=== PATIENT | female | born 1970 | race Caucasian/White ===

== ENCOUNTER → 2019-12-09 | Outpatient (CLI) | payer BC ==
--- NOTE | 2019-12-09 16:25 | Diagnostic Imaging Report ---
EXAMINATION: Left hip at 02:27 p.m. INDICATION: Hip pain. FINDINGS: A single AP view of the pelvis and AP and lateral views of the left hip were obtained. There are no prior studies available for comparison. There is no fracture, dislocation, or acute bony abnormality evident. There is moderate degenerative disease of the left hip joint and mild degenerative disease of the right hip joint. Mild symmetrical sclerosis of the sacroiliac joints is also seen. The soft tissues are unremarkable. IMPRESSION: 1. There is no evidence for an acute bony abnormality. 2. There is moderate degenerative disease involving the left hip joint. Dictated by: Dictated on workstation # [id number]
== END ==
LOC: RAD FS 14:05
PROVIDERS: ATTEND Nurse Practitioner
DX: M16.12 Unilateral primary osteoarthritis, left hip (principal)
CPT/HCPCS: 73502

== ENCOUNTER → 2020-01-28 | Outpatient (CLI) | payer BC ==
[~2020-01-28] VITALS: Ht 185.5 cm; Wt 113.6 kg
[~2020-01-28] MED LIST: GADOBUTROL 7.5 MMOL/7.5 ML (GADAVIST) VIAL IV ONE; IOHEXOL 240 MGI/ML 50 ML (OMNIPAQUE) VIAL IV ONE
--- NOTE | 2020-01-28 16:33 | Diagnostic Imaging Report ---
PROCEDURE: MRI left joint lower extremity with contrast. TECHNIQUE: Multiplanar, multisequence intra-articular contrast-enhanced MRI of the left hip was accomplished. INDICATION: Left hip pain for eight months. Occasional catching. No known injury. COMPARISON: Radiographs from 12/09/2019. FINDINGS: No acute fracture is seen in the pelvis or left hip. Alignment appears normal. The femoral heads are well seated in the acetabula bilaterally. There is distention of the left hip joint with contrast. There are elsxhmzy-lr-qoydsy degenerative changes in the superior left hip with large cyst-like changes in the superior acetabulum. There is extensive degenerative complex tearing of the acetabular labrum, most notable in the superior and anterior labrum. No evidence of osteonecrosis is seen. The alpha angle of the left hip measures 45 degrees. There is motion artifact on multiple sequences. The left iliopsoas tendon appears intact. The left gluteus medius and minimus tendons appear intact. No focal muscular atrophy is appreciated. IMPRESSION: 1. Fbmhojru-sg-zhpakw degenerative changes in the left hip with complex degenerative tearing of the glenoid labrum. Prominent cyst in the superior acetabulum may be due to degeneration or possibly an intraosseous ganglion cyst. 2. No acute osseous abnormality is seen in the left hip. Dictated by: Dictated on workstation # [id number]
== END ==
LOC: RAD 13:32
PROVIDERS: ATTEND Nurse Practitioner
DX: M25.852 Other specified joint disorders, left hip (principal); M24.152 Other articular cartilage disorders, left hip; M16.12 Unilateral primary osteoarthritis, left hip
CPT/HCPCS: 27093; 73525; 73722

== ENCOUNTER 2020-08-09 13:06 | Day surgery (SDC) | payer BC ==
[2020-08-09] VITALS (9 sets, daily range): BP systolic 124–158; BP diastolic 73–88
[~2020-08-09] VITALS: Ht 185 cm; Wt 121.1 kg
[2020-08-09] MEDS ORDERED: morphine INJ 10 MG/ML 1ML (SYR OR VIAL) IVP STA ×3 (13:29→15:08)
[2020-08-09] MEDS ORDERED: ONDANSETRON 4 MG/2 ML (SDV) Z0FRAN IVP ONE (13:30)
[2020-08-09] MEDS: NS IV 1000 ML 1,000 ML IV SCH ×2 (13:36→14:44)
[2020-08-09 13:38] LABS: BASOPHILS # (AUTO) 0.1 10^3/uL (0.0-0.1); BASOPHILS % (AUTO) 1 % (0-10); EOSINOPHILS # (AUTO) 0.1 10^3/uL (0.0-0.3); EOSINOPHILS % (AUTO) 2 % (0-10); HEMATOCRIT 44 % (35-52); HEMOGLOBIN 14.6 G/DL (11.5-16.0); LYMPHOCYTES # (AUTO) 1.4 X 10^3 (1.0-4.0); LYMPHOCYTES % (AUTO) 14 % (12-44); MEAN CORPUSCULAR HEMOGLOBIN 29 PG (25-34); MEAN CORPUSCULAR HGB CONC 33 G/DL (32-36); MEAN CORPUSCULAR VOLUME 88 FL (80-99); MEAN PLATELET VOLUME 10.4 FL (7.4-10.4); MONOCYTES # (AUTO) 0.6 X 10^3 (0.0-1.0); MONOCYTES % (AUTO) 7 % (0-12); NEUTROPHILS # (AUTO) 7.2 X 10^3 (1.8-7.8); NEUTROPHILS % (AUTO) 77 % (42-75); PLATELET COUNT 266 10^3/uL (130-400); WHITE BLOOD COUNT 9.4 10^3/uL (4.3-11.0)
--- NOTE | 2020-08-09 13:40 | Diagnostic Imaging Report ---
INDICATION: Chest pain. COMPARISON: None FINDINGS: Single frontal view of the chest demonstrates normal heart size and pulmonary vascularity. The lungs are well aerated and clear. No large pleural effusion or pneumothorax is seen. The visualized osseous structures show no acute abnormalities. IMPRESSION: 1. No acute cardiopulmonary process. Dictated by: Dictated on workstation # [id number]
[2020-08-09 13:56] LABS: ALANINE AMINOTRANSFERASE 229 U/L (0-55); ALBUMIN 4.8 GM/DL (3.2-4.5); ALKALINE PHOSPHATASE 140 U/L (40-136); BILIRUBIN,TOTAL 0.4 MG/DL (0.1-1.0); BUN/CREATININE RATIO 17; CALCIUM 9.8 MG/DL (8.5-10.1); CARBON DIOXIDE 25 MMOL/L (21-32); CHLORIDE 104 MMOL/L (98-107); CREATININE SERUM 0.83 MG/DL (0.60-1.30); GFR ESTIMATED > 60; GLUCOSE 129 MG/DL (70-105); LIPASE 185 U/L (8-78); POTASSIUM 3.9 MMOL/L (3.6-5.0); SODIUM 142 MMOL/L (135-145); TOTAL PROTEIN 7.9 GM/DL (6.4-8.2)
[2020-08-09] MEDS ORDERED: LORazepam INJ 2 MG/ML (ATIVAN) VIAL IVP ONE (14:00)
[2020-08-09] MEDS ORDERED: CEFEPIME INJECTION 1,000 MG in WATER (STERILE) FOR INJECTION 10 ML IV ONE (14:30)
--- NOTE | 2020-08-09 14:43 | ED General ---
General Chief Complaint: Abdominal/GI Problems Stated Complaint: RT ABD PAIN Nursing Triage Note: Started having abdominal pain yesterday at 4 pm. Went to urgent care this morning and had an ultrasound that showed gallstone at neck of gallbladder. Was also prescribed hydro's and an appointment with Dr Fagan, surgeon, at 1445. Comes to ED at this time due to pain and not being able to keep down pain meds due to nausea and vomiting. Nursing Sepsis Screen: No Definite Risk Source of Information: Patient History of Present Illness Date Seen by Provider: Aug 09, 2020 Time Seen by Provider: 13:10 Initial Comments Patient is a 50-year-old female who presents with epigastric/right upper quadr ant pain radiating to her back. Symptom onset began approximately 18 hours prior to ED arrival. Pain is moderate to severe persistent and worse with palpation and movement. Is not relieved by position change or rest. Patient was evaluated at urgent care this morning had not ultrasound which did show an impacted gallstone at the neck of the gallbladder. Patient was given pain m edication instructed to follow-up with Dr. Fagan this afternoon. However, patient was unable to keep pain and nausea medication down necessitating today's ER visit. Patient denies fever chills, sweats. Hematemesis coffee-ground emesis or bilious emesis. No diarrhea. No urinary frequency urgency. Previous cholecystectomy. Timing/Duration: 12-24 Hours Severity: Severe Modifying Factors: improves with Other Associated Systoms: Other Allergies and Home Medications Allergies Coded Allergies: Penicillins (Verified Allergy, Unknown, unknown , 08/09/20) Patient Home Medication List Home Medication List Reviewed: Yes Review of Systems Review of Systems Constitutional: see HPI EENTM: see HPI Respiratory: no symptoms reported Cardiovascular: see HPI Gastrointestinal: see HPI Genitourinary: see HPI : Yes Musculoskeletal: back pain Skin: no symptoms reported Psychiatric/Neurological: No Symptoms Reported Immunological/Allergic: no symptoms reported All Other Systems Reviewed Negative Unless Noted: Yes Past Lqidxcv-Wiwrjy-Ufgtvf Hx Past Med/Social Hx: Reviewed Nursing Past Med/Soc Hx Patient Social History Alcohol Use: Denies Use Smoking Status: Never a Smoker 2nd Hand Smoke Exposure: No Recent Infectious Disease Expo: No Recent Hopitalizations: No Seasonal Allergies Seasonal Allergies: No Past Medical History Surgeries: Yes Hysterectomy Respiratory: No Cardiac: Yes Hypertension Neurological: No Genitourinary: No Gastrointestinal: No Musculoskeletal: No Endocrine: No HEENT: No Cancer: No Psychosocial: No Integumentary: No Blood Disorders: No Adverse Reaction/Blood Tranf: No Physical Exam Vital Signs Vital Signs - First Documented 08/09/20 13:22 Temp 35.1 Pulse 57 Resp 16 B/P (MAP) 195/88 (123) Pulse Ox 100 Capillary Refill : Less Than 3 Seconds Height, Weight, BMI Height: '" Weight: lbs. oz. kg; 35.00 BMI Method: General Appearance: Moderate Distress (Secondary to pain) Eyes: Bilateral Eye Normal Inspection, Bilateral Eye PERRL, Bilateral Eye EOMI HEENT: PERRL/EOMI, Normal ENT Inspection, Pharynx Normal Neck: Non Tender Respiratory: Lungs Clear Cardiovascular: Regular Rate, Rhythm Gastrointestinal: Soft, Guarding, Tenderness, Other Back: Normal Inspection, No CVA Tenderness Extremity: Normal Capillary Refill, Non Tender Neurologic/Psychiatric: Alert Focused Exam Sepsis Stage: Ruled Out Lactate Level 08/09/20 13:35: Lactic Acid Level 1.38 Lactic Acid Level Laboratory Tests Test 08/09/20 13:35 Lactic Acid Level 1.38 MMOL/L (0.50-2.00) Progress/Results/Core Measures Suspected Sepsis Recent Fever Within 48 Hours: No Infection Criteria Present: None New/Unexplained Altered Menta: No Sepsis Screen: No Definite Risk SIRS Temperature: Pulse: 57 Respiratory Rate: 16 Laboratory Tests 08/09/20 13:25: White Blood Count 9.4 Blood Pressure 195 /88 Mean: 123 08/09/20 13:35: Lactic Acid Level 1.38 Laboratory Tests 08/09/20 13:25: Creatinine 0.83, Platelet Count 266, Total Bilirubin 0.4 Results/Orders Lab Results Laboratory Tests Test 08/09/20 13:25 08/09/20 13:35 Range/Units White Blood Count 9.4 4.3-11.0 10^3/uL Red Blood Count 4.97 4.35-5.85 10^6/uL Hemoglobin 14.6 11.5-16.0 G/DL Hematocrit 44 35-52 % Mean Corpuscular Volume 88 80-99 FL Mean Corpuscular Hemoglobin 29 25-34 PG Mean Corpuscular Hemoglobin Concent 33 32-36 G/DL Red Cell Distribution Width 13.6 10.0-14.5 % Platelet Count 266 130-400 10^3/uL Mean Platelet Volume 10.4 7.4-10.4 FL Immature Granulocyte % (Auto) 0 % Neutrophils (%) (Auto) 77 H 42-75 % Lymphocytes (%) (Auto) 14 12-44 % Monocytes (%) (Auto) 7 0-12 % Eosinophils (%) (Auto) 2 0-10 % Basophils (%) (Auto) 1 0-10 % Neutrophils # (Auto) 7.2 1.8-7.8 X 10^3 Lymphocytes # (Auto) 1.4 1.0-4.0 X 10^3 Monocytes # (Auto) 0.6 0.0-1.0 X 10^3 Eosinophils # (Auto) 0.1 0.0-0.3 10^3/uL Basophils # (Auto) 0.1 0.0-0.1 10^3/uL Immature Granulocyte # (Auto) 0.0 0.0-0.1 10^3/uL Sodium Level 142 135-145 MMOL/L Potassium Level 3.9 3.6-5.0 MMOL/L Chloride Level 104 98-107 MMOL/L Carbon Dioxide Level 25 21-32 MMOL/L Anion Gap 13 5-14 MMOL/L Blood Urea Nitrogen 14 7-18 MG/DL Creatinine 0.83 0.60-1.30 MG/DL Estimat Glomerular Filtration Rate > 60 BUN/Creatinine Ratio 17 Glucose Level 129 H 70-105 MG/DL Calcium Level 9.8 8.5-10.1 MG/DL Corrected Calcium 8.5-10.1 MG/DL Total Bilirubin 0.4 0.1-1.0 MG/DL Aspartate Amino Transf (AST/SGOT) 50 H 5-34 U/L Alanine Aminotransferase (ALT/SGPT) 229 H 0-55 U/L Alkaline Phosphatase 140 H 40-136 U/L Total Protein 7.9 6.4-8.2 GM/DL Albumin 4.8 H 3.2-4.5 GM/DL Lipase 185 H 8-78 U/L Smear Scan Lactic Acid Level 1.38 0.50-2.00 MMOL/L My Orders Orders - TODD TAN DO Cbc With Automated Diff (08/09/20 13:29) Comprehensive Metabolic Panel (08/09/20 13:29) Lipase (08/09/20 13:29) Ekg Tracing (08/09/20 13:29) Chest 1 View Ap/Pa Only (08/09/20 13:29) Morphine Injection (Morphine Injection (08/09/20 13:29) Ondansetron Injection (Zofran Injectio (08/09/20 13:30) Ns Iv 1000 Ml (Sodium Chloride 0.9%) (08/09/20 13:30) Lactic Acid Analyzer (08/09/20 13:30) Morphine Injection (Morphine Injection (08/09/20 13:46) Lorazepam Injection (Ativan Injection) (08/09/20 14:00) Cefepime Injection (Maxipime Injection) (08/09/20 14:30) Medications Given in ED Current Medications Medications Dose Ordered Sig/An Route Start Time Stop Time Status Last Admin Dose Admin Lorazepam 1 mg ONCE ONCE IVP 08/09/20 14:00 08/09/20 14:01 DC 08/09/20 13:56 1 MG Ondansetron HCl 4 mg ONCE ONCE IVP 08/09/20 13:30 08/09/20 13:31 DC 08/09/20 13:36 4 MG Vital Signs/I&O 08/09/20 13:22 Temp 35.1 Pulse 57 Resp 16 B/P (MAP) 195/88 (123) Pulse Ox 100 Capillary Refill : Less Than 3 Seconds Blood Pressure Mean: 123 Departure Communication (Admissions) Right upper quadrant pain/tenderness with documented impacted gallstone in gallbladder neck and ultrasound prior to ED arrival. Evidence of cholecystitis with pancreatitis. Bilirubin is normal. Case reviewed with Dr. Fagan who agrees to directly admit to [facility]. Impression Primary Impression: Acute cholecystitis Additional Impression: Pancreatitis Disposition: 09 ADMITTED INPATIENT Condition: Stable Admissions Decision to Admit Reason: Admit from ER (General) Transfer Method of Transfer: EMS Departure-Patient Inst. Referrals: DENI ESCOBAR MD (PCP/Family) Primary Care Physician TODD TAN DO Aug 09, 2020 14:43
[2020-08-09] MEDS ORDERED: ROCURONIUM 10 MG/ML 5 ML SYRINGE IV ONE (15:50)
[2020-08-09] MEDS ORDERED: SEVOFLURANE (ULTANE) 15 ML INHAL SOLN ONE ×5 (15:50→18:06)
[2020-08-09] MEDS ORDERED: LIDOCAINE PF 2% 5 ML (XYLOCAINE) VIAL ONE (15:50)
[2020-08-09] MEDS ORDERED: ONDANSETRON 4 MG/2 ML (SDV) Z0FRAN ONE (15:50)
[2020-08-09] MEDS ORDERED: proPOfol 200 MG/20 ML (DIPRIVAN) VIAL IV ONE (15:50)
[2020-08-09] MEDS ORDERED: fentaNYL INJECTION 100 MCG/2 ML AMP ONE (15:51)
[2020-08-09] MEDS ORDERED: MIDAZOLAM 2 MG/2 ML (VERSED) VIAL ONE (15:52)
[2020-08-09] MEDS ORDERED: IOPAMIDOL 61% 30 ML (ISOVUE 300) VIAL ONE (16:42)
[2020-08-09] MEDS ORDERED: LIDOCAINE/EPI 1%-1:200,000 (XYLOCAINE) 10 ML VIAL ONE (16:42)
[2020-08-09] MEDS ORDERED: HYDROmorphone 2 MG/ML VIAL (DILAUDID) IV ONE (16:45)
[2020-08-09] MEDS ORDERED: morphine INJ 10 MG/ML 1ML (SYR OR VIAL) IVP ONE (16:45)
[2020-08-09] MEDS ORDERED: ONDANSETRON 4 MG/2 ML (SDV) Z0FRAN IVP PRN (16:45)
--- NOTE | 2020-08-09 16:53 | History & Physical-Surgical ---
History of Present Illness History of Present Illness Reason for visit/HPI CC: ruq abdominal pain. 50 year old female with ruq abd pain that started 5 pm yesterday. Moves into back. Severe pain. . Having nausea and vomiting. Can't keep anything down. Patient had u/s today showing stone in gallbladder neck and changes consistent with cholecystitis. Date of Admission T Date Seen by a Provider: Aug 09, 2020 Time Seen by a Provider: 16:50 I consulted on this patient on 08/09/20 16:48 Attending Physician Rubina Fagan DO Admitting Physician Edgardo Granado MD Consult Allergies and Home Medications Allergies Coded Allergies: Penicillins (Verified Allergy, Unknown, unknown , 08/09/20) Patient Home Medication List Home Medication List Reviewed: Yes Past Yqhmcsr-Eqcbxz-Fnfhiu Hx Patient Social History Smoking Status: Never a Smoker 2nd Hand Smoke Exposure: No Recent Hopitalizations: No Seasonal Allergies Seasonal Allergies: No Surgeries History of Surgeries: Yes Surgeries: Hysterectomy Respiratory History of Respiratory Disorde: No Cardiovascular History of Cardiac Disorders: Yes Cardiac Disorders: Hypertension Neurological History of Neurological Disord: No Genitourinary History of Genitourinary Disor: No Gastrointestinal History of Gastrointestinal Di: No Musculoskeletal History of Musculoskeletal Dis: No Endocrine History of Endocrine Disorders: No HEENT History of HEENT Disorders: No Cancer History of Cancer: No Psychosocial History of Psychiatric Problem: No Integumentary History of Skin or Integumenta: No Blood Transfusions History of Blood Disorders: No Adverse Reaction to a Blood Tr: No Reviewed Nursing Assessment Reviewed/Agree w Nursing PMH: Yes Family Medical History Significant Family History: No Pertinent Family Hx Review of Systems Constitutional: No chills, No weakness EENTM: No blurred vision, No double vision Respiratory: No cough, No dyspnea on exertion Cardiovascular: No chest pain, No palpitations Gastrointestinal: abdominal pain (RUQ), nausea, vomiting Genitourinary: No decreased output, No discharge Musculoskeletal: back pain; No joint pain Skin: No change in color, No change in hair/nails Psychiatric/Neurological: Denies Anxiety, Denies Depressed, Denies Emotional Problems All Other Systems Reviewed Negative Unless Noted: Yes (Negative excepted noted.) Physical Exam Vital Signs Vital Signs - First Documented 08/09/20 08/09/20 13:22 16:21 Temp 35.1 Pulse 57 Resp 16 B/P (MAP) 195/88 (123) Pulse Ox 100 O2 Delivery Room Air Capillary Refill : Less Than 3 Seconds Height, Weight, BMI Height: '" Weight: lbs. oz. kg; 35.00 BMI Method: General Appearance: No Apparent Distress, WD/WN HEENT: PERRL/EOMI, Normal ENT Inspection Neck: Non Tender, Supple Respiratory: Chest Non Tender, No Accessory Muscle Use, No Respiratory Distress Cardiovascular: Regular Rate, Rhythm, No JVD Gastrointestinal: Soft, Tenderness (ruq) Rectal: Deferred Back: Normal Inspection, No Vertebral Tenderness Extremity: Normal Inspection, Non Tender Neurologic/Psychiatric: Alert, Oriented x3, No Motor/Sensory Deficits, Normal Mood/Affect Skin: Normal Color, Warm/Dry Lymphatic: No Adenopathy Data Review Labs Laboratory Tests 08/09/20 13:25: White Blood Count 9.4, Red Blood Count 4.97, Hemoglobin 14.6, Hematocrit 44, Mean Corpuscular Volume 88, Mean Corpuscular Hemoglobin 29, Mean Corpuscular Hemoglobin Concent 33, Red Cell Distribution Width 13.6, Platelet Count 266, Mean Platelet Volume 10.4, Immature Granulocyte % (Auto) 0, Neutrophils (%) (Auto) 77H, Lymphocytes (%) (Auto) 14, Monocytes (%) (Auto) 7, Eosinophils (%) (Auto) 2, Basophils (%) (Auto) 1, Neutrophils # (Auto) 7.2, Lymphocytes # (Auto) 1.4, Monocytes # (Auto) 0.6, Eosinophils # (Auto) 0.1, Basophils # (Auto) 0.1, Immature Granulocyte # (Auto) 0.0, Sodium Level 142, Potassium Level 3.9, Chloride Level 104, Carbon Dioxide Level 25, Anion Gap 13, Blood Urea Nitrogen 14, Creatinine 0.83, Estimat Glomerular Filtration Rate > 60, BUN/Creatinine Ratio 17, Glucose Level 129H, Calcium Level 9.8, Corrected Calcium , Total Bilirubin 0.4, Aspartate Amino Transf (AST/SGOT) 50H, Alanine Aminotransferase (ALT/SGPT) 229H, Alkaline Phosphatase 140H, Total Protein 7.9, Albumin 4.8H, Lipase 185H, Smear Scan 08/09/20 13:35: Lactic Acid Level 1.38 Assessment/Plan Assessment/Plan Admission Diagonsis ruq abdominal pain cholelithiasis c cholecystitis nausea/vomiting Admission Status: Other (Same Day Surgery) Assessment/Plan ruq abdominal pain cholelithiasis c cholecystitis nausea/vomiting patient discussed risks and benefits of lap alberto c ioc understands and wishes to proceed to or npo iv hydration consent RUBINA FAGAN DO Aug 09, 2020 16:53
[2020-08-09] MEDS: LACTATED RINGERS 1,000 ML IV PRN ×2 (16:59→21:21)
[2020-08-09] MEDS ORDERED: CLINDAMYCIN 600 MG/50 ML IVPB 50 ML IV ONE (17:00)
[2020-08-09] MEDS ORDERED: CLINDAMYCIN 600 MG/4ML (CLEOCIN) VIAL ONE (17:33)
[2020-08-09] MEDS ORDERED: SUCCINYLCHOLINE INJ 100 MG/5 ML SYR/VIAL ONE (18:06)
[2020-08-09] MEDS ORDERED: GLYCOPYRROLATE 0.2 MG/ML (ROBINUL) 2 ML VIAL ONE (18:06)
[2020-08-09] MEDS ORDERED: NEOSTIGMINE 3 MG/3 ML VIAL ONE (18:06)
--- NOTE | 2020-08-09 18:20 | Diagnostic Imaging Report ---
Indication: Fluoroscopic images during lap alberto surgery Comparison: None. Technique: 31 intraoperative fluoroscopic images of the biliary system. Fluoroscopic Time: 6.8 seconds Findings: Intraoperative fluoroscopic images were obtained during laparoscopic cholecystectomy. Contrast is visualized spilling into the small bowel. Impression: Fluoroscopic intraoperative images obtained during laparoscopic cholecystectomy. Dictated by: Dictated on workstation # [id number]
--- NOTE | 2020-08-09 18:21 | Progress Note-Post Operative ---
Post-Operative Progess Note Surgeon (s)/Regulatory Leader (s) Surgeon RUBINA VÁZQUEZ DO Regulatory Leader: Dr. Denise to assist in retraction dissection and closure Pre-Operative Diagnosis cholelithiasis, cholecystitis Post-Operative Diagnosis same Procedure & Operative Findings Date of Procedure 08/09/20 Procedure Performed/Findings PROCEDURE: Laparoscopic cholecystectomy with intraoperative cholangiogram. COMPLICATIONS: None. PROCEDURE: The patient was taken to the operating suite and was prepped and draped in sterile fashion. A surgical pause was performed. Just superior to the umbilicus, a 12 mm incision was made. Dissection was taken down to the fascia, which was then scored and grasped with a Karla and the abdomen was then entered. A 0 Vicryl suture was placed in a psejso-sk-gheav fashion and a Moncada trocar was placed and secured. Pneumoperitoneum was achieved. A 5mm trochar place in the subxyphoid and 2 in the right upper quadrant. The gallbladder was distended inflamed and had to be decompressed. It was then grasped and elevated. Multiple adhesions taken down. The cystic duct, and cystic artery were then dissected out. Clip was placed on the distal portion of the cystic duct which was then partially transected. An arrow catheter was inserted into the duct. The cholangiogram was then performed. No filing defects and contrast made its way into the duodenum. Catheter removed. Clips were placed on proximal portion of the cystic duct and then the duct was then transected. Clips were placed along the proximal and distal portion of the cystic artery which was then transected. Hook cautery was used to dissect the gallbladder from the gallbladder fossa achieving hemostasis. The gallbladder was placed in an Endobag and removed through the 12 mm trocar site. The abdomen was then reinspected. Copious amounts of irrigation were used to irrigate the abdomen and there were no signs of active bleeding. Hemostasis had been achieved. The 12 mm fascial defect was then closed with 0 Vicryl suture that had been placed in a pqyeid-tu-igwxd fashion. The abdomen was then desufflated, the trocars were removed. The abdomen was then washed and dried. The skin was then closed using 4-0 Monocryl in a subcuticular fashion. The abdomen was washed and dried and Skin Affix was place over incisions. Patient tolerated the procedure well without any complications and was taken to the recovery room in stable condition. Anesthesia Type general Estimated Blood Loss Estimated blood loss (mL): minimal Specimens/Packing Specimens Removed gallbladder RUBINA VÁZQUEZ DO Aug 09, 2020 18:21
[2020-08-09] MEDS ORDERED: DOCU-143 PO (18:22)
[2020-08-09] MEDS ORDERED: ACHD5005 PO (18:22)
--- NOTE | 2020-08-09 18:24 | Discharge Inst-Simple/Standard ---
Discharge Inst-Standard Discharge Medications New, Converted or Re-Newed RX: RX on Chart Patient Instructions/Follow Up Plan of Care/Instructions/FU: 2 weeks Gracia Activity as Tolerated: No Discharge Diet: Liquid Diet (then slowly advance as tolerates) Other Inst to Patient Follow up Appt: Make appointment for 2 weeks. Instructions: No lifting greater than 10 pounds. No strenuous activity. May shower in 24 hours, no tub bath or soaking. Use incentive spirometer at home as directed. No Smoking Skin/Wound Care: You have special glue over incision, it will fall off on it's own. Symptoms to Report: Appetite Changes, Extremity Discoloration, Numbness/Tingling, Swelling Increased, Bleeding Excessive, Eyesight Changes, Pain Increased, Urine Color Change, Constipation(Persistent), Fever over 101 degree F, Pain/Pressure in chest, Urinating Difficulty, Cough Up/Vomit Blood, Heart Beat Irreg/Pounding, Pain/Pressure in jaw, Vaginal Bleeding Increase, Cramps in feet or legs, Lightheadedness, Pain/Pressure in shoulder, Diarrhea(Persistent), Memory Changes Suddenly, Questions/Concerns, Weight gain consecutive days, Dizziness/Fainting, Nausea/Vomiting, Shortness of Breath, Weight gain over 2 pounds. If eyes or skin turn yellow notify physician. If questions or concerns contact your physician Or seek help at emergency department. RUBINA VÁZQUEZ DO Aug 09, 2020 18:24
--- NOTE | 2020-08-09 18:45 | Anesthesia-General Post-Op ---
General Patient Condition Mental Status/LOC: Same as Preop Cardiovascular: Satisfactory Nausea/Vomiting: Absent Respiratory: Satisfactory Pain: Controlled Complications: Absent Post Op Complications Complications None Follow Up Care/Instructions Patient Instructions None needed. Anesthesia/Patient Condition Patient Condition Patient is doing well, no complaints, stable vital signs, no apparent adverse anesthesia problems. No complications reported per nursing. CELIA ALVARES CRNA Aug 09, 2020 18:45
== END 2020-08-09 22:49 | disposition home or self-care (01) ==
LOC: EDUNIT# 13:06 → ER FS 13:08 → SDC 16:42 → 4TH 19:30 → SDC 22:49
PROVIDERS: ATTEND Surgery
DX: K80.12 Calculus of gallbladder with acute and chronic cholecystitis without obstruction (principal); I10 Essential (primary) hypertension; Z79.899 Other long term (current) drug therapy; Z88.0 Allergy status to penicillin; Z90.710 Acquired absence of both cervix and uterus; Z20.822 Contact with and (suspected) exposure to COVID-19
CPT/HCPCS: 36415; 47563; 71045; 76000; 80053; 83605; 83690; 85025; 88304; 93005; 94664; 96374; 96375; 96376; 99285; U0002; 87635

== ENCOUNTER 2021-01-18 05:38 | Outpatient (CLI) | payer BC ==
[~2021-01-18] VITALS: Ht 185.4 cm; Wt 124.3 kg
[~2021-01-18 05:38] MED LIST changes: +ACHD5005 PO; +DOCU-143 PO; -GADOBUTROL 7.5 MMOL/7.5 ML (GADAVIST) VIAL IV ONE; -IOHEXOL 240 MGI/ML 50 ML (OMNIPAQUE) VIAL IV ONE
[2021-01-20] MEDS ORDERED: LOSA25TA41 PO (08:34)
[2021-01-20] MEDS ORDERED: VENL150T PO (08:34)
== END 2021-01-20 09:26 | disposition home or self-care (01) ==
LOC: PREOP 05:38
PROVIDERS: ATTEND Surgery
DX: Z01.818 Encounter for other preprocedural examination (principal)

== ENCOUNTER 2021-01-25 08:50 | Day surgery (SDC) | payer BC ==
[~2021-01-25] VITALS: Ht 185.4 cm; Wt 124.3 kg
[~2021-01-25 08:50] MED LIST changes: +LOSA25TA41 PO; +VENL150T PO
[2021-01-25] MEDS ORDERED: LACTATED RINGERS 1,000 ML IV STA (08:53)
[2021-01-25 09:00] VITALS: BP 162/95
[2021-01-25] MEDS ORDERED: LACTATED RINGERS 1,000 ML IV ONE (09:07)
[2021-01-25] MEDS ORDERED: MIDAZOLAM 2 MG/2 ML (VERSED) VIAL ONE (09:49)
[2021-01-25] MEDS ORDERED: proPOfol 200 MG/20 ML (DIPRIVAN) VIAL IV ONE ×3 (09:50→10:31)
[2021-01-25 10:35] VITALS: BP 146/85
[2021-01-25 10:40] VITALS: BP 144/88
[2021-01-25 11:10] VITALS: BP 182/106
--- NOTE | 2021-01-25 11:12 | Discharge Inst-Simple/Standard ---
Discharge Inst-Standard Patient Instructions/Follow Up Plan of Care/Instructions/FU: 2 weeks Gracia Activity as Tolerated: Yes Discharge Diet: Regular Diet RUBINA VÁZQUEZ DO Jan 25, 2021 11:12
--- NOTE | 2021-01-25 11:13 | Progress Note-Post Operative ---
Post-Operative Progess Note Surgeon (s)/Bullet Swaging Machine Adjuster (s) Surgeon RUBINA VÁZQUEZ DO Bullet Swaging Machine Adjuster: na Pre-Operative Diagnosis screening colonoscopy Post-Operative Diagnosis colon polyps x 2 Procedure & Operative Findings Date of Procedure 01/25/21 Procedure Performed/Findings colonoscopy c hot bx polypectomy x 2 Anesthesia Type per x ray equipment servicer Estimated Blood Loss Estimated blood loss (mL): na Specimens/Packing Specimens Removed colon polyps RUBINA VÁZQUEZ DO Jan 25, 2021 11:13
[2021-01-25 11:26] VITALS: BP 182/106
--- NOTE | 2021-01-25 13:45 | Anesthesia-General Post-Op ---
MAC Patient Condition Mental Status/LOC: Same as Preop Cardiovascular: Satisfactory Nausea/Vomiting: Absent Respiratory: Satisfactory Pain: Controlled Complications: Absent Post Op Complications Complications None Follow Up Care/Instructions Patient Instructions None needed. Anesthesiology Discharge Order Discharge Order Patient is doing well, no complaints, stable vital signs, no apparent adverse anesthesia problems. No complications reported per nursing. ONEIL HODGES CRNA Jan 25, 2021 13:45
--- NOTE | 2021-01-25 18:08 | OPERATIVE REPORT ---
DATE OF SERVICE: 01/25/2021 PREOPERATIVE DIAGNOSIS: Screening colonoscopy. POSTOPERATIVE DIAGNOSIS: Colon polyps. PROCEDURE: Colonoscopy with hot biopsy polypectomy x2. SURGEON: Rubina Fagan DO ANESTHESIA: Per PACK PRESS OPERATOR. ESTIMATED BLOOD LOSS: None. COMPLICATIONS: None. INDICATIONS: The patient is a 51-year-old female needing screening colonoscopy. She understands risks and benefits of procedure and wished to proceed with procedure. Consent was signed in the chart. DESCRIPTION OF PROCEDURE: The patient was taken to the endoscopy suite, placed in left lateral recumbent position. Timeout was performed. Digital rectal exam was performed. No palpable polyps, masses or ulcerations. Scope was inserted in the rectum and advanced all the way to cecum with minimal difficulty. Prep was adequate. Scope was then slowly retracted back. No polyps, masses or ulcerations within the cecum, ascending colon. In the transverse colon, a small polyp was present, which hot biopsy polypectomy was performed. Scope was then continuously slowly retracted back without any other polyps in the transverse, remainder of the transverse and descending colon. In the sigmoid colon, a small polyp was present, which hot biopsy polypectomy was performed. Scope was then continuously slowly retracted back until the rectum where it was retroflexed noting no other pathology. Scope was returned to its normal position, slowly withdrawn until completely removed. The patient tolerated procedure well without any complications. She was taken to recovery room in stable condition. RECOMMENDATIONS: The patient will need repeat colonoscopy in 5 years. Any issues before that be seen at that time. The patient is to follow up in 2 weeks to discuss pathology results. Any issues before that be seen at that time. Job ID: [id number] DocumentID: [id number] Dictated Date: 01/25/2021 11:18:28 Pan Devulcanizer Helper Date: 01/25/2021 18:08:15 Dictated By: RUBINA FAGAN DO
== END 2021-01-25 11:32 | disposition home or self-care (01) ==
LOC: ENDO 08:50
PROVIDERS: ATTEND Surgery
DX: Z12.11 Encounter for screening for malignant neoplasm of colon (principal); D12.3 Benign neoplasm of transverse colon; K63.5 Polyp of colon; I10 Essential (primary) hypertension; Z90.710 Acquired absence of both cervix and uterus; Z90.49 Acquired absence of other specified parts of digestive tract; Z79.899 Other long term (current) drug therapy; Z79.891 Long term (current) use of opiate analgesic; Z82.49 Family history of ischemic heart disease and other diseases of the circulatory system; Z83.3 Family history of diabetes mellitus
CPT/HCPCS: 88305